=== PATIENT | female | born 1975 | race Caucasian/White ===

== ENCOUNTER → 2020-03-14 10:43 | Outpatient (CLI) | payer OTHER, MEDICAID, SELFPAY ==
--- NOTE | 2020-03-14 | DI.US.S_ITS ---
PROCEDURE: US EXTREMELY NONVASC UPPER RT INDICATIONS: RIGHT ARM LUMP TECHNIQUE: Real-time scanning was performed of the dorsal medial right wrist, with image documentation. COMPARISON: None. FINDINGS: There is a 1.6 x 0.3 x 1.6 cm minimally complex a vascular fluid collection corresponding exactly to the area of current clinical concern. IMPRESSION: Presumed ganglion cyst identified in the area of current clinical concern dorsal medial aspect of the right wrist. Follow-up MR scanning can be utilized for higher resolution anatomic detail if clinically necessary. Dictated by: Alberto Brown M.D. on 03/14/2020 at 13:05 Approved by: Alberto Brown M.D. on 03/14/2020 at 13:15
== END ==
PROVIDERS: PCP Nurse Practitioner Family; Referring Provider Nurse Practitioner Family; Visit Provider Nurse Practitioner Family
DX: R22.31 Localized swelling, mass and lump, right upper limb (principal)
CPT/HCPCS: 76882

== ENCOUNTER → 2020-04-18 11:11 | Outpatient (CLI) | payer OTHER, MEDICAID, SELFPAY ==
--- NOTE | 2020-04-18 | DI.RAD.S_ITS ---
PROCEDURE: XR SHOULDER LT MIN 2V INDICATIONS: Pain in left shoulder TECHNIQUE: 3 views of the shoulder were acquired. COMPARISON: None. FINDINGS: Bones: No fractures or dislocations. No suspicious bony lesions. Visualized ribs appear intact. Soft tissues: No suspicious soft tissue calcifications. IMPRESSION: Negative examination. If the patient's pain or other symptoms persist, consider further evaluation with MRI Dictated by: Mainor An M.D. on 04/18/2020 at 15:01 Approved by: Mainor An M.D. on 04/18/2020 at 15:02
--- NOTE | 2020-04-18 | DI.US.S_ITS ---
PROCEDURE: US PELVIC COMPLETE INDICATIONS: IRREGULAR MENSTRUATION TECHNIQUE: Real-time scanning was performed of the pelvic organs, with image documentation. Additional endovaginal scanning was necessary due to incomplete visualization of the adnexal and endometrial structures by transabdominal scanning. COMPARISON: None. FINDINGS: Transabdominal scanning: Limited scanning through the kidneys shows no hydronephrosis. No pathologic free abdominal or pelvic fluid. Endovaginal scanning: Uterus: Uterus is normal in size at 7.9 x 3.3 x 4.7 cm. The endometrium measures 1-2 mm in combined thickness. Ovaries: Right ovary measures 3.2 x 1.9 x 2.1 cm. The left ovary measures 2.8 x 1.2 x 1.6 cm. There is bilateral ovarian physiologic follicular change. IMPRESSION: Unremarkable examination as detailed above Dictated by: Mainor An M.D. on 04/18/2020 at 16:19 Approved by: Mainor An M.D. on 04/18/2020 at 16:20
== END ==
PROVIDERS: PCP Nurse Practitioner Family; Referring Provider Nurse Practitioner Family; Visit Provider Nurse Practitioner Family
DX: M25.512 Pain in left shoulder (principal); N92.6 Irregular menstruation, unspecified
CPT/HCPCS: 73030; 76856

== ENCOUNTER → 2023-09-28 12:50 | Outpatient (CLI) | payer OTHER, SELFPAY ==
--- NOTE | 2023-09-28 12:54 | DI.US.S_ITS ---
PROCEDURE: US SOFT TISSUE HEAD AND NECK INDICATIONS: RIGHT SUBMANDIBULAR LUMP TECHNIQUE: Real-time scanning was performed of the neck region of interest, with image documentation. Color Doppler was also utilized. COMPARISON: None. FINDINGS: Scanning is performed at the area of clinical concern involving the right submandibular area. At this site, there is a superficial lesion seen, with an apparent connection to the skin that measures 9 x 2 x 7 mm. No abnormal vascularity can be seen. This lesion is heterogeneous, yet it is largely cystic. IMPRESSION: Benign-appearing skin lesion seen, which is largely cystic and may be related to a sebaceous cyst. No abnormal vascularity can be seen. Dictated by: Stef Allen M.D. on 09/28/2023 at 12:56 Approved by: Stef Allen M.D. on 09/28/2023 at 12:57
== END ==
PROVIDERS: PCP Nurse Practitioner Family; Referring Provider Nurse Practitioner Family; Visit Provider Nurse Practitioner Family
DX: R22.1 Localized swelling, mass and lump, neck (principal)
CPT/HCPCS: 76536